=== PATIENT | female | born 1955 | race Caucasian/White ===

== ENCOUNTER 2019-03-02 06:52 | Day surgery (SDC) | payer BC ==
[~2019-03-02 06:52] MED LIST: Lactated Ringers 1,000 ML IV SCH; Lidocaine 1%/Sod Bicarbonate in NS 8.4% 1 ML Syringe IDERM PRN; Sodium Chloride 0.9% 10 ML Syringe FLUSH PRN
[2019-03-02] MEDS ORDERED: Propofol 200 MG/20 ML SDV ONE ×2 (07:14→08:33)
[2019-03-02] MEDS ORDERED: Lidocaine 1% 4 ML ONE (07:16)
[2019-03-02] MEDS ORDERED: fentaNYL 100 MCG/2 ML SDV ONE (07:18)
--- NOTE | 2019-03-02 07:34 | PCM.PREANE ---
Preanesthetic Assessment - Procedure Proposed Procedure: Screening Colonoscopy - Anesthesia/Transfusion/Family Hx Type of Anesthesia Reaction: Excessive Nausea/Vomiting Family History of Anesthesia Reaction: No Transfusion History: No Prior Transfusion(s) Intubation History: Unknown - Review of Systems General: No Symptoms Pulmonary: No Symptoms Cardiovascular: No Symptoms Gastrointestinal: No Symptoms Neurological: No Symptoms Other: Reports: None - Physical Assessment ASA Class: 2 Mental Status: Alert & Oriented x3 Airway Class: Mallampati = 1 Dentition: Reports: Normal Dentition Thyro-Mental Finger Breadths: 3 Mouth Opening Finger Breadths: 3 ROM/Head Extension: Full Lungs: Clear to Auscultation, Normal Respiratory Effort Cardiovascular: Regular Rate, Regular Rhythm, No Murmurs - Allergies Allergies/Adverse Reactions: Allergies Allergy/AdvReac Type Severity Reaction Status Date / Time No Known Allergies Allergy Verified 03/01/19 11:23 - Blood Product(s) Available: None - Acknowledgements Anesthesia Type Planned: General Anesthesia, MAC Pt an Appropriate Candidate for the Planned Anesthesia: Yes Alternatives and Risks of Anesthesia Discussed w Pt/Guardian: Yes Pt/Guardian Understands and Agrees with Anesthesia Plan: Yes PreAnesthesia Questionnaire HEENT History: Reports: Impaired Vision Cardiovascular History: Reports: High Cholesterol, Other (See Below) Other Cardiovascular History: Patient was diagnosed with pre-hypertension and was on medications, but she has been off medications for approximately 4 years Respiratory History: Reports: None Gastrointestinal History: Reports: None Genitourinary History: Reports: Other (See Below) Other Genitourinary History: "Collapsed bladder" DIPPER FISH History: Reports: Other Musculoskeletal History: Right hand pain Neurological History: Reports: None Psychiatric History: Reports: None Endocrine/Metabolic History: Reports: None Hematologic History: Reports: None Immunologic History: Reports: None Oncologic (Cancer) History: Reports: None Dermatologic History: Reports: None - Past Surgical History Head Surgeries/Procedures: Reports: None HEENT Surgical History: Reports: Other (See Below) Other HEENT Surgeries/Procedures: Harrison teeth extraction Cardiovascular Surgical History: Reports: None Respiratory Surgical History: Reports: None GI Surgical History: Reports: None Female Surgical History: Reports: Hysterectomy Endocrine Surgical History: Reports: None Neurological Surgical History: Reports: None Musculoskeletal Surgical History: Reports: Carpal Tunnel Oncologic Surgical History: Reports: None Dermatological Surgical History: Reports: None - SUBSTANCE USE Smoking Status *Q: Never Smoker Second Hand Smoke Exposure: Yes Recreational Drug Use History: No - HOME MEDS Home Medications: Home Meds Calcium Carbonate [Calcium] 600 mg PO DAILY 03/01/19 [History] Cholecalciferol (Vitamin D3) [Vitamin D3] 1,000 unit PO DAILY 03/01/19 [History] Fish Oil/[place]-3 Fatty Acids [Fish Oil 1,000 MG] 1,000 mg PO DAILY 03/01/19 [ History] Multivitamin [Daily Multiple Vitamin] 1 tab PO DAILY 03/01/19 [History] Potassium 99 mg PO DAILY 03/01/19 [History] Turm/Ging/Bright/Yuc/Romain/Eduardo/Hor [Tumersaid Tablet] 1 tab PO DAILY 03/01/19 [ History] Vitamin B12. 1 tab PO DAILY 03/01/19 [History] - CURRENT (IN HOUSE) MEDS Current Meds: Current Medications Lactated Ringer's (Ringers, Lactated) 1,000 mls @ 125 mls/hr IV ASDIRECTED LAVERNE Stop: 03/02/19 23:00 Lidocaine/Sodium Bicarbonate (Buffered Lidocaine 1% In Ns 8.4%) 0.25 ml IDERM ONETIME PRN PRN Reason: Prior to IV Start Stop: 03/02/19 18:00 Sodium Chloride (Saline Flush) 10 ml FLUSH ASDIRECTED PRN PRN Reason: Keep Vein Open Stop: 03/02/19 18:00 Discontinued Medications Fentanyl (Sublimaze) Confirm Administered Dose 100 mcg .ROUTE .STK-MED ONE Stop: 03/02/19 07:19 Lidocaine HCl (Xylocaine-Mpf 1%) Confirm Administered Dose 4 mls @ as directed .ROUTE .STK-MED ONE Stop: 03/02/19 07:17 Propofol (Diprivan 20 Ml) Confirm Administered Dose 400 mg .ROUTE .STK-MED ONE Stop: 03/02/19 07:15
[2019-03-02] MEDS ORDERED: Lactated Ringers 1,000 ML ONE (08:37)
--- NOTE | 2019-03-02 08:58 | PCM48HPAN ---
Post Anesthesia Note - EVALUATION WITHIN 48HRS OF ANESTHETIC Vital Signs in Normal Range: Yes Patient Participated in Evaluation: Yes Respiratory Function Stable: Yes Airway Patent: Yes Cardiovascular Function Stable: Yes Hydration Status Stable: Yes Pain Control Satisfactory: Yes Nausea and Vomiting Control Satisfactory: Yes Mental Status Recovered: Yes Vital Signs: Last Vital Signs Temp 97.2 F 03/02/19 08:45 Pulse 72 03/02/19 08:45 Resp 14 03/02/19 08:45 BP 114/70 03/02/19 08:45 Pulse Ox 93 L 03/02/19 08:45
--- NOTE | 2019-03-02 09:05 | PCM.PRNOTE ---
- Free Text/Narrative Note: Date : 03/02/2019 Endoscopist: Javy Lockhart MD Procedure: screening colonoscopy Findings: slight mucosal abnormalities suggestive of small polyps biopsied, one in mid ascending colon and one in proximal rectum. Diverticular disease most notable in descending colon. Prep was good. Detailed report: Time out was performed, and the patient was positioned in left lateral decubitus position. Once adequate sedation was achieved, the anus was visually inspected and digital rectal exam performed with no abnormality noted. The colonoscope was then inserted and advanced successfully to the cecum. The prep was good. The colon was redundant, and positioning the patient supine aided with successful advancement of the scope. On withdrawal, a small raised area was noted in the ascending colon about 10 cm distal to the ileocecal valve. This was biopsied with cold forceps. there was scattered diverticular disease, most notable in the descending colon with multiple wide-mouthed diverticuli. A small sessile lesion was noted and biopsied in the proximal rectum. No abnormalities noted on retroflexion within the rectum. The scope was completely withdrawn. No complications noted; the patient tolerated the procedure well. Javy Lockhart MD General Surgery
== END 2019-03-02 09:55 | disposition home or self-care (01) ==
LOC: JD.SDS 06:52
PROVIDERS: ATTEND Surgery
DX: Z12.11 Encounter for screening for malignant neoplasm of colon (principal); K62.1 Rectal polyp; K57.30 Diverticulosis of large intestine without perforation or abscess without bleeding; K63.89 Other specified diseases of intestine; I10 Essential (primary) hypertension; E78.00 Pure hypercholesterolemia, unspecified; Z79.899 Other long term (current) drug therapy
CPT/HCPCS: 45380; J2001; J2704; J3010; J7120; 00812